=== PATIENT | male | born 1955 | race Native Hawaiian/Other Pacific Islander ===

== ENCOUNTER 2016-12-29 19:44 | Emergency (ER) | payer BC ==
[~2016-12-29] VITALS: Ht 180.3 cm; Wt 105.2 kg
[~2016-12-29 19:44] MED LIST: METFORMIN ER1000 MG PO; PRINIVIL10 MG OR
[2016-12-29 21:29] VITALS: BP 160/78; TEMP 98.1
== END 2016-12-29 21:30 | disposition home or self-care (01) ==
LOC: ED 19:44
DX: S80.02XA Contusion of left knee, initial encounter (principal); S81.012A Laceration without foreign body, left knee, initial encounter; W19.XXXA Unspecified fall, initial encounter
CPT/HCPCS: 99283

== ENCOUNTER 2023-02-23 12:39 | Outpatient (CLI) | payer MEDICARE | END 2023-02-23 19:22 | disposition home or self-care (01) | LOC: RAD 12:39 | PROVIDERS: ATTEND Nurse Practitioner | DX: M25.511 Pain in right shoulder (principal) ==